=== PATIENT | female | born 1950 | race Hispanic/Latino ===

== ENCOUNTER 2019-06-26 02:23 | Emergency (ER) | payer OTHER ==
[2019-06-26 03:37] LABS: Absolute Lymphocytes (CBC) 1.7 K/uL (0.7-4.9); Basophils % 0.6 % (0-1.3); Hematocrit 40.7 % (36.0-45.0); Lymphocytes % 14.4 % (15.3-44.8); MPV 11.4 fL (7.6-11.3); RBC Red Blood Cell Count 4.47 M/uL (3.86-4.86)
[2019-06-26 04:07] LABS: Potassium 3.9 mmol/L (3.5-5.1)
[2019-06-26] MEDS ORDERED: TRAMADOL HCL 50 MG TAB ONE (04:08)
--- NOTE | 2019-06-26 05:18 | EDPHYS ---
Physician Documentation [facility] Name: Jimena Campuzano Age: 69 yrs Sex: Female : 1950 Arrival Date: 06/26/2019 Time: 02:26 Bed 18 Private MD: Rory Dhaliwal E ED Physician Uvaldo Hernandez HPI: 06/26 03:42 This 69 yrs old Female presents to ER via Wheelchair with complaints of Fall tw4 Injury. 03:42 Details of fall: The patient fell from an upright position, while standing, and struck. tw4 Onset: The symptoms/episode began/occurred today. Severity of symptoms: anterior aspect of left shoulder, decreased range of motion, coccyx, At their worst the symptoms were moderate. Historical: - Allergies: 02:41 No Known Allergies; aa1 - Home Meds: 02:41 Lisinopril Oral [Active]; Metformin Oral [Active]; aa1 - PMHx: 02:41 Diabetes - NIDDM; Hypertension; aa1 - PSHx: 02:41 None; aa1 - Immunization history:: Flu vaccine is up to date. - Social history:: Smoking status: Patient/guardian denies using tobacco. - Ebola Screening: : No symptoms or risks identified at this time. ROS: 03:42 Constitutional: Negative for fever, chills, and weight loss, Eyes: Negative for injury, tw4 pain, redness, and discharge, Cardiovascular: Negative for chest pain, palpitations, and edema, Respiratory: Negative for shortness of breath, cough, wheezing, and pleuritic chest pain, Abdomen/GI: Negative for abdominal pain, nausea, vomiting, diarrhea, and constipation, Back: Negative for injury and pain. 03:42 MS/extremity: Positive for injury or acute deformity, decreased range of motion, Negative for deformity, ecchymosis, erythema, laceration, pain, paresthesias, puncture, rash. Exam: 03:42 Constitutional: This is a well developed, well nourished patient who is awake, alert, tw4 and in no acute distress. Head/Face: Normocephalic, atraumatic. Cardiovascular: Regular rate and rhythm with a normal S1 and S2. No gallops, murmurs, or rubs. Normal PMI, no JVD. No pulse deficits. Respiratory: Lungs have equal breath sounds bilaterally, clear to auscultation and percussion. No rales, rhonchi or wheezes noted. No increased work of breathing, no retractions or nasal flaring. Abdomen/GI: Soft, non-tender, with normal bowel sounds. No distension or tympany. No guarding or rebound. No evidence of tenderness throughout. Back: No spinal tenderness. No costovertebral tenderness. Full range of motion. Neuro: Awake and alert, GCS 15, oriented to person, place, time, and situation. Cranial nerves II-XII grossly intact. Motor strength 5/5 in all extremities. Sensory grossly intact. Cerebellar exam normal. Normal gait. 03:42 Musculoskeletal/extremity: Extremities: noted in the anterior aspect of left shoulder: decreased ROM, pain. Vital Signs: 02:41 BP 159 / 82; Pulse 103; Resp 18; Temp 98.6(O); Pulse Ox 97% on R/A; Weight 64.41 kg; aa1 Height 5 ft. 2 in. (157.48 cm); Pain 8/10; 04:32 BP 143 / 74; Pulse 94; Resp 17 S; Pulse Ox 98% on R/A; jd3 05:44 Pulse 89; Resp 17 S; Pulse Ox 97% on R/A; jd3 02:41 Body Mass Index 25.97 (64.41 kg, 157.48 cm) aa1 MDM: 02:33 Patient medically screened. tw4 03:42 Differential diagnosis: abrasion, closed head injury, contusion. Data reviewed: vital tw4 signs, nurses notes. Counseling: I had a detailed discussion with the patient and/or guardian regarding: the historical points, exam findings, and any diagnostic results supporting the discharge/admit diagnosis. 06/26 02:40 Order name: Basic Metabolic Panel; Complete Time: 05:14 tw4 06/26 05:14 Interpretation: Normal except: NA 135; GLUC 145; GFR 77. tw4 06/26 02:40 Order name: CBC with Diff; Complete Time: 05:14 tw4 06/26 05:14 Interpretation: Normal except: WBC 11.8; PLT 120; MPV 11.4; TRACY% 80.5; LYM% 14.4; NEUT tw4 A 9.5. 06/26 02:40 Order name: CT Traumagram (Head C Spine CAP wo con) tw4 06/26 02:40 Order name: Creatinine for Radiology; Complete Time: 05:14 tw4 06/26 05:15 Interpretation: Within normal limits: CRE 0.82. tw4 06/26 02:40 Order name: Type And Screen tw4 06/26 02:40 Order name: Humerus Left XRAY tw4 06/26 02:40 Order name: Labs collected and sent; Complete Time: 03:30 tw4 06/26 02:40 Order name: Shoulder Left (2 View) XRAY tw4 Administered Medications: 04:09 Drug: traMADol 50 mg Route: PO; jd3 05:45 Follow up: Response: No adverse reaction; RASS: Alert and Calm (0) jd3 05:27 Drug: fentaNYL (PF) 50 mcg Route: IVP; Site: left antecubital; jd3 05:45 Follow up: Response: Medication administered at discharge. jd3 05:27 Drug: Zofran 4 mg Route: IVP; Site: left antecubital; jd3 05:45 Follow up: Response: Medication administered at discharge. jd3 Disposition: 06/26/19 05:17 Discharged to Home. Impression: Contusion of lower back and pelvis, Contusion of abdominal wall, Contusion of left shoulder. - Condition is Stable. - Discharge Instructions: Fall Prevention in the Home, Contusion, [id number]. - Prescriptions for Ibuprofen 600 mg Oral Tablet - take 1 tablet by ORAL route every 6 hours As needed take with food; 30 tablet. Tylenol- Codeine #3 300-30 mg Oral Tablet - take 2 tablet by ORAL route every 6 hours As needed; 6 tablet. Tramadol 50 mg Oral Tablet - take 1 tablet by ORAL route every 8 hours as needed; 12 tablet. - Medication Reconciliation Form, Thank You Letter, Antibiotic Education, Prescription Opioid Use form. - Follow up: Rory Dhaliwal MD; When: Upon discharge from the Emergency Department; Reason: Recheck today's complaints, Continuance of care. - Problem is new. - Symptoms have improved. Signatures: Dispatcher [employer] EDMS Carrie Sharif RN RN aa1 Zeke Dodd RN RN jd3 Uvaldo Hernandez MD MD tw4 Corrections: (The following items were deleted from the chart) 05:46 05:17 06/26/2019 05:17 Discharged to Home. Impression: Contusion of lower back and jd3 pelvis; Contusion of abdominal wall; Contusion of left shoulder. Condition is Stable. Forms are Medication Reconciliation Form, Thank You Letter, Antibiotic Education, Prescription Opioid Use. Follow up: Rory Dhaliwal; When: Upon discharge from the Emergency Department; Reason: Recheck today's complaints, Continuance of care. Problem is new. Symptoms have improved. tw4
--- NOTE | 2019-06-26 05:18 | ER ---
Nurse's Notes [facility] Name: Jimena Campuzano Age: 69 yrs Sex: Female : 1950 Arrival Date: 06/26/2019 Time: 02:26 Bed 18 Private MD: Rory Dhaliwal E Diagnosis: Contusion of lower back and pelvis;Contusion of abdominal wall;Contusion of left shoulder Presentation: 06/26 02:37 Presenting complaint: Patient states: she woke up to use the restroom and accidentally aa1 opened the door to the stairs instead of the bathroom and slid down about 10 steps on her backside. Denies hitting her head. Denies LOC. C/O L arm pain, chest pain, abd pain, and pain to coccyx. Transition of care: patient was not received from another setting of care. Onset of symptoms was June 26, 2019. Initial Sepsis Screen: Does the patient meet any 2 criteria? HR > 90 bpm. Does the patient have a suspected source of infection? No. Patient's initial sepsis screen is negative. Care prior to arrival: None. 02:37 Method Of Arrival: Wheelchair aa1 02:37 Acuity: PARMINDER 3 aa1 02:49 Risk Assessment: Do you want to hurt yourself or someone else? Patient reports no jd3 desire to harm self or others. Triage Assessment: 02:41 General: Appears in no apparent distress. uncomfortable, Behavior is calm, cooperative, aa1 appropriate for age. Historical: - Allergies: 02:41 No Known Allergies; aa1 - Home Meds: 02:41 Lisinopril Oral [Active]; Metformin Oral [Active]; aa1 - PMHx: 02:41 Diabetes - NIDDM; Hypertension; aa1 - PSHx: 02:41 None; aa1 - Immunization history:: Flu vaccine is up to date. - Social history:: Smoking status: Patient/guardian denies using tobacco. - Ebola Screening: : No symptoms or risks identified at this time. Screenin:49 Abuse screen: Denies threats or abuse. Nutritional screening: No deficits noted. jd3 Tuberculosis screening: No symptoms or risk factors identified. Fall Risk Ambulatory Aid- None/Bed Rest/Nurse Assist (0 pts). Gait- Normal/Bed Rest/Wheelchair (0 pts) Mental Status- Oriented to own ability (0 pts). Total Cuello Fall Scale indicates No Risk (0-24 pts). Assessment: 02:46 General: Appears in no apparent distress. uncomfortable, Behavior is calm, cooperative, jd3 appropriate for age. Pain: Complains of pain in anterior aspect of left upper chest, abdomen, left arm and left leg Quality of pain is described as aching, tender. Neuro: Level of Consciousness is awake, alert, obeys commands, Oriented to person, place, time, situation, Denies blurred vision dizziness, paresthesias numbness LOC. Cardiovascular: Heart tones S1 S2 present Capillary refill < 3 seconds Patient's skin is warm and dry. Respiratory: Airway is patent Respiratory effort is even, unlabored, Respiratory pattern is regular, symmetrical, Breath sounds are clear bilaterally. Denies cough, shortness of breath. GI: Abdomen is round non-distended, Patient currently denies diarrhea, nausea, vomiting. : No signs and/or symptoms were reported regarding the genitourinary system. EENT: No signs and/or symptoms were reported regarding the EENT system. Derm: Skin is intact, Skin is dry, Skin is normal, Skin temperature is warm. Musculoskeletal: Circulation, motion, and sensation intact. Range of motion: intact in all extremities. 03:45 Reassessment: Patient appears in no apparent distress at this time. No changes from jd3 previously documented assessment. Patient and/or family updated on plan of care and expected duration. Pain level reassessed. Patient is alert, oriented x 3, equal unlabored respirations, skin warm/dry/pink. 04:33 Reassessment: Patient appears in no apparent distress at this time. No changes from jd3 previously documented assessment. Patient and/or family updated on plan of care and expected duration. Pain level reassessed. Patient is alert, oriented x 3, equal unlabored respirations, skin warm/dry/pink. 05:44 Reassessment: Patient appears in no apparent distress at this time. Patient and/or jd3 family updated on plan of care and expected duration. Pain level reassessed. Patient is alert, oriented x 3, equal unlabored respirations, skin warm/dry/pink. Patient states feeling better. Vital Signs: 02:41 BP 159 / 82; Pulse 103; Resp 18; Temp 98.6(O); Pulse Ox 97% on R/A; Weight 64.41 kg; aa1 Height 5 ft. 2 in. (157.48 cm); Pain 8/10; 04:32 BP 143 / 74; Pulse 94; Resp 17 S; Pulse Ox 98% on R/A; jd3 05:44 Pulse 89; Resp 17 S; Pulse Ox 97% on R/A; jd3 02:41 Body Mass Index 25.97 (64.41 kg, 157.48 cm) aa1 ED Course: 02:26 Patient arrived in ED. es 02:26 Rory Dhaliwal MD is Private Physician. es 02:30 Patient has correct armband on for positive identification. Bed in low position. Call aa1 light in reach. Side rails up X2. Pulse ox on. NIBP on. 02:33 Uvaldo Hernandez MD is Attending Physician. tw4 02:41 Triage completed. aa1 02:41 Arm band placed on right wrist. aa1 02:46 Zeke Dodd RN is Primary Nurse. jd3 03:25 Missed attempt(s): 20 gauge Bleeding controlled, band aid applied, catheter tip intact. oe 03:28 Inserted saline lock: 20 gauge in left antecubital area, using aseptic technique. Blood oe collected. 03:30 Humerus Left XRAY In Process Unspecified. EDMS 03:30 Shoulder Left (2 View) XRAY In Process Unspecified. EDMS 04:02 CT Traumagram (Head C Spine CAP wo con) In Process Unspecified. EDMS 05:16 Rory Dhaliwal MD is Referral Physician. tw4 05:43 No provider procedures requiring assistance completed. IV discontinued, intact, jd3 bleeding controlled, No redness/swelling at site. Pressure dressing applied. Administered Medications: 04:09 Drug: traMADol 50 mg Route: PO; jd3 05:45 Follow up: Response: No adverse reaction; RASS: Alert and Calm (0) jd3 05:27 Drug: fentaNYL (PF) 50 mcg Route: IVP; Site: left antecubital; jd3 05:45 Follow up: Response: Medication administered at discharge. jd3 05:27 Drug: Zofran 4 mg Route: IVP; Site: left antecubital; jd3 05:45 Follow up: Response: Medication administered at discharge. jd3 Outcome: 05:17 Discharge ordered by . tw4 05:43 Discharged to home via wheelchair, with family. jd3 05:43 Condition: stable 05:43 Discharge instructions given to patient, family, Instructed on discharge instructions, follow up and referral plans. medication usage, Demonstrated understanding of instructions, follow-up care, medications, Prescriptions given X 3. 05:46 Patient left the ED. jd3 Signatures: Dispatcher [employer] Carrie Toney RN RN aa1 Urvashi Bird [place] oe Davies, Jonathon, RN RN jd3 Uvaldo Hernandez MD MD tw4 Corrections: (The following items were deleted from the chart) 03:29 03:28 Inserted saline lock: oe oe 05:45 05:05 Response: No adverse reaction jjack jd3
[2019-06-26] MEDS ORDERED: FENTANYL CITR 100 MCG/2 ML ONE (05:21)
[2019-06-26] MEDS ORDERED: ONDANSETRON 4 MG/2 ML VIAL ONE (05:21)
--- NOTE | 2019-06-26 10:59 | RAD REPORT ---
EXAM DESCRIPTION: RAD - Humerus Left - 06/26/2019 3:30 am CLINICAL HISTORY: PAIN Fall, pain COMPARISON: None FINDINGS: Left shoulder and left humerus- multiple projections Degenerative changes are present in the shoulder. Diffuse osteopenia. No acute fracture or dislocatio n demonstrated.
[2019-06-26 12:15] VITALS: TEMP 98.6; O2SAT 97
[2019-06-26 12:39] VITALS: BP 143/74
--- NOTE | 2019-06-28 12:52 | RAD REPORT ---
EXAM DESCRIPTION: RAD - Shoulder Left 2 View - 06/26/2019 3:30 am CLINICAL HISTORY: PAIN Fall, pain COMPARISON: None FINDINGS: Left shoulder and left humerus- multiple projections Degenerative changes are present in the shoulder. Diffuse osteopenia. No acute fracture or dislocatio n demonstrated.
--- NOTE | 2019-06-28 13:12 | RAD REPORT ---
EXAM DESCRIPTION: 1. CT HEAD without intravenous contrast 2. CT CERVICAL SPINE without IV contrast 3. CT CHEST without intravenous contrast. 4. CT ABDOMEN AND PELVIS without intravenous contrast. CLINICAL HISTORY: 69-year-old female status post fall. She slid down about 10 steps on her backside TECHNIQUE: Multiple unenhanced axial CT images of the brain, cervical spine, chest, abdomen and pelv is were performed followed by sagittal and coronal reconstructed images. The CT study is performed ac cording to ALARA (as low as reasonably achievable) or ALARA/IMAGE GENTLY, with automatic adjustment o f mA and/or kV according to patient size. Performed on: 06/26/2019 at 3:33 AM COMPARISON: Prior CT head and cervical spine performed on 02/01/2013. FINDINGS: CT HEAD: There is no evidence of mass, acute mass effect or midline shift. There are no acute extra-axial flui d collections. There is no evidence of acute intracranial hemorrhage. As noted previously, there ar e multiple supratentorial parenchymal calcifications bilaterally likely related to prior neurocystice rcosis or other chronic infection. The cerebral sulci and ventricles are normal in size and configuration. There are no additional focal abnormal areas of increased or decreased attenuation. There is no significant mucosal thickening of the paranasal sinuses. The mastoid air cells are clear. The orbital contents are grossly unremarkable. No acute osseous abnormalities are identified. No focal soft tissue abnormalities are identified. CT CERVICAL SPINE: The cervical vertebrae are normal in height. There is normal alignment of the vertebrae. The disc spa mag are well preserved in height. Bone mineralization is normal. The atlanto-axial articulation is preserved and the odontoid process is intact. There is mild degenerative spondylosis at C5 and C6. Findings are similar when compared to the prior study. There is normal alignment of the facet joints on the parasagittal images. There are There is no evidence of acute fracture or subluxation. There is no significant canal stenosis. Ther e is no significant neural foraminal stenosis. The paravertebral and paraspinal soft tissues are un remarkable. The lung apices are clear. CHEST: Lungs: The lungs are well expanded and are clear. There is minimal fibrosis and/or atelectasis in the dependent lungs. Heart: The heart is normal in size. There is no pericardial effusion. Mediastinum: The mediastinum is unremarkable. The mediastinal vessels are normal in caliber and con tour. There are minimal atherosclerotic calcifications along the thoracic aorta. Bones: No acute osseous abnormalities are identified. There is very mild degenerative spondylosis rosemary ng the thoracic spine. Soft tissues: No focal soft tissue abnormalities are identified. Lymphadenopathy: No pathologic hilar, mediastinal or axillary lymphadenopathy is identified. There is a calcified mediastinal lymph nodes consistent with prior granulomatous disease. ABDOMEN/PELVIS: Liver: The liver is normal in size and configuration. No focal hepatic abnormalities are identified. Liver attenuation is within normal limits. Spleen: The spleen is normal is size, configuration and attenuation. Gallbladder and bile duct: The gallbladder is well distended and contains numerous gallstones. Ther e is no biliary ductal dilatation. Pancreas: The pancreas is grossly normal in size and configuration. Adrenal Glands: The adrenal glands are normal in size and configuration. Kidneys: The kidneys are normal in size and configuration. There is no evidence of hydronephrosis. Th ere is no evidence of nephrolithiasis. No definite solid or cystic renal mass lesions are identified. Stomach: The stomach is grossly normal. There is no definite hiatal hernia. Bowel: The bowel gas pattern is non specific and non obstructive. There is moderate fecal residue sca ttered throughout the colon. Appendix: The appendix is not well visualized on this examination. Free air: There is no evidence of free air. Free fluid: There is no evidence of free fluid. Vasculature: The aorta is normal in caliber and contour. The inferior vena cava is grossly unremarkab le. Lymphadenopathy: No pathologic lymphadenopathy is identified. Bladder: The bladder is well distended and smooth in contour. Reproductive: The uterus is grossly within normal limits. Bones: No acute osseous abnormalities are identified. There is degenerative disc disease at L5-S1. Soft tissues: There is infiltration of the subcutaneous soft tissues over the left buttocks region co nsistent with contusion. IMPRESSION: CT HEAD: 1. There is no evidence of acute intracranial pathology. 2. Multiple, grossly stable supratentorial parenchymal calcifications likely related to neurocysticer cosis or other chronic infection. CT CERVICAL SPINE: 1. No evidence of acute osseous injury. 2. Mild degenerative spondylosis at C5 and C6. CT CHEST: 1. No evidence of acute intrathoracic disease. 2. Evidence of prior granulomatous disease. CT ABDOMEN/PELVIS: 1. Contusion over the left buttocks region. 2. No evidence of acute intra-abdominal or intrapelvic pathology. 3. Cholelithiasis without evidence of biliary ductal dilatation. Electronically signed by: Briana Wiley DO 06/26/2019 4:41 AM [employer] Due to temporary technical issues with the PACS/Fluency reporting system, reports are being signed by the in house radiologist as a courtesy to ensure prompt reporting. The interpreting radiologist is f ully responsible for the content of the report.
== END 2019-06-26 05:46 | disposition home or self-care (01) ==
LOC: ER 02:23
DX: S40.012A Contusion of left shoulder, initial encounter (principal); S30.0XXA Contusion of lower back and pelvis, initial encounter; S30.1XXA Contusion of abdominal wall, initial encounter; W19.XXXA Unspecified fall, initial encounter; Y93.9 Activity, unspecified; Y92.9 Unspecified place or not applicable; I10 Essential (primary) hypertension; E11.9 Type 2 diabetes mellitus without complications
CPT/HCPCS: 85025; 80048; 36415; 86900; 86850; 86901; 70450; 71250; 72125; 73060; 73030; 96375; 96374; 99284; J3010; J2405

== ENCOUNTER 2024-05-12 19:43 | Emergency (ER) | payer MEDICARE ==
[2024-05-12 20:22] LABS: Absolute Basophils 0.1 K/uL (0-0.5); Absolute Eosinophils 0.1 K/uL (0-0.5); Absolute Lymphocytes (CBC) 2.6 K/uL (0.7-4.9); Absolute Monocytes 0.5 K/uL (0.1-1.3); Absolute Neutrophil 7.6 K/uL (1.8-8.0); Basophils % 0.5 % (0-1.3); Eosinophils % 1.4 % (0-4.4); Hemoglobin 13.6 g/dL (12.0-15.0); Lymphocytes % 24.2 % (15.3-44.8); MCHC 34.1 g/dL (32.0-36.0); MCV 93.9 fL (80-100); MPV 10.3 fL (7.6-11.3); Monocytes % 4.5 % (3.3-12.3); Neutrophils % 69.4 % (41.7-73.7); Nucleated Red Blood Cells % 0.1 % (0-0); Platelets 124 thou/uL (152-406); RBC Red Blood Cell Count 4.26 M/uL (3.86-4.86); Red Cell Distribution Width 13.7 % (12.1-15.2)
[2024-05-12] MEDS ORDERED: HYDROCODONE/APAP 7.5/325 MG TAB ONE (20:41)
[2024-05-12 20:44] LABS: Magnesium 1.9 mg/dL (1.6-2.4); Troponin High Sensitivity 9.5 pg/mL (<58.9)
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
[2024-05-13 16:02] VITALS: BP 179/97; TEMP 98.1; O2SAT 99
--- NOTE | 2024-05-14 16:39 | EKG ---
Test Date: 2024-05-12 Test Time: 21:46:55 [place]: COURT MEASUREMENT RESULTS: Intervals: Rate: 80 FL: 152 QRSD: 84 QT: 372 QTc: 429 [place]: P: 51 FL: 152 QRS: 52 T: 35 INTERPRETIVE STATEMENTS: Normal sinus rhythm Normal ECG Compared to ECG 06/12/2005 18:56:00 T-wave abnormality no longer present Possible ischemia no longer present Electronically Signed On 05-14-24 16:33:52 CDT by Jerrod Hinson
== END 2024-05-12 22:54 | disposition home or self-care (01) ==
LOC: ER 19:43
DX: S09.90XA Unspecified injury of head, initial encounter (principal); S19.9XXA Unspecified injury of neck, initial encounter; S29.9XXA Unspecified injury of thorax, initial encounter; V43.62XA Car passenger injured in collision with other type car in traffic accident, initial encounter; W22.12XA Striking against or struck by front passenger side automobile airbag, initial encounter; Y93.89 Activity, other specified; Y92.410 Unspecified street and highway as the place of occurrence of the external cause
CPT/HCPCS: 36415; 70450; 71250; 72125; 74176; 80048; 83735; 84484; 85025; 93005; 99283